=== PATIENT | female | born 1995 | race Caucasian/White ===

== ENCOUNTER 2018-02-04 13:50 | Emergency (ER) | END 2018-02-04 17:24 | disposition home or self-care (01) ==

== ENCOUNTER 2018-07-19 12:25 | Inpatient (IN) | payer OTHER ==
[~2018-07-19] VITALS: Ht 165.1 cm; Wt 110.6 kg
[~2018-07-19 12:25] MED LIST: CALC600T24 PO; FERR-31 PO; FOLI-49 PO; PREN-29 PO
[2018-07-19 12:42] VITALS: BP 122/68; PULSE 94; RESP 18
[2018-07-19 12:43] VITALS: Ht 165.1 cm; Wt 110.6 kg
--- NOTE | 2018-07-19 13:54 | TRIAGE ---
OB Triage Datetime Report Generated by CPN: 07/19/2018 13:54 Datetime: 07/19/2018 13:30 Stage of : OB Triage Maternal Assessment Level of Consciousness: Fully Conscious Labor Evaluation Frequency: 5uc/hr Monitor Mode: External Duration (sec)2399: 50-80 Quality: Mild Resting Tone Belcher: Relaxed Heart Rate FHR Baseline Rate: 135 Monitor Mode: External US Variability: Moderate 6-25 bpm Accelerations: 15X15 Decelerations: None Category: Category I Pain Assessment Pain Scale: 0 Pain Goal: 3 Vaginal Exam Membrane Status: Intact Vaginal Bleeding: None Datetime: 07/19/2018 12:39 Assessment Type: Triage Maternal Assessment Level of Consciousness: Fully Conscious DTR's/Clonus: DTRs 2+; No Clonus Headache: Denies Blurred Vision: No Respiratory Effort: Unlabored; Regular Rhythm; Equal Expansion Breath Sounds, Left: Clear and Equal Breath Sounds, Right: Clear and Equal Nausea/Vomiting: Denies RUQ Epigastric Pain: Denies Lower Extremities Edema: None Degree: None Upper Extremities Edema: None Degree: None Facial Edema: None Fall Risk Assessment History of Falling: (0) No Secondary Diagnosis: (0) No Ambulatory Aid: (0) Bedrest/Nurse Assist IV Therapy: (0) No Gait: (0) Normal/Bedrest/Immobile Mental Status: (0) Oriented to Own Ability Fall Score: 0 Fall Risk Score Definition: No Risk: No action required Datetime: 07/19/2018 12:37 Monitor Mode: External Monitor Mode: External US Datetime: 07/19/2018 12:32 Time of Arrival: 07/19/2018 12:19 Arrived By: Ambulatory; Wheelchair Arrived From: Home Chief Complaint: PT HERE C/O PAIN AND SPOTTING 2 DAYS AGO Movement: Present Contractions: Denies/Absent Rupture of Membranes: Denies Vaginal Bleeding: None Vaginal Discharge: Present Recent Sexual Intercouse: Denies Abdominal Trauma: Not Applicable Patient Complaints: Cramping Time Provider Notified: 07/19/2018 12:19 Provider Notified: MADHAV Initial Plan: KINGT/GABRIEL/BARBARAL
--- NOTE | 2018-07-19 13:54 | HP ---
Date/Time of Note Date/Time of Note DATE: 07/19/18 TIME: 13:52 OB - History Hx of Present Free Text/Dictation @30+WKS GA with PTL and spotting : 3 Para: 2 Care: None Ultrasounds: No ultrasounds Obstetrical Complications: None Medical Complications: None Past Family/Social History * Past Medical, Surgical, Family and Obstetric Histories reviewed from chart. OB Admission Exam Vital Signs Vital Signs Vital Signs Date Temp Pulse Resp B/P (MAP) Pulse Ox O2 O2 Flow FiO2 Time Delivery Rate 07/19/18 98.2 94 18 122/68 Room Air 12:42 (86) Physical Exam Abdomen: WNL Extremities: Normal Cervical Dilatation: None Station: Ballotable Membranes: Intact Heart Rate: 140's Accelerations: Accelerations Present Decelerations: No Decelerations Varibility: Moderate Contractions on Admission: None OB Assessment/Plan Reason for admission: observation Other Assessment: PMH Denies PSH Denies Allergies NKDA Plan: Expectant Management Other plan: Steroids Perinatology consult Continuous monitoring Urine culture ROBB Burgos M.D. Jul 19, 2018 13:54
[2018-07-19] MEDS ORDERED: CEFAZOLIN 2 GM/50 ML (PMX) 50 ML IVPB ONE ×2 (14:00→15:49)
[2018-07-19] MEDS ORDERED: ACETAMINOPHEN 325 MG TAB PO PRN (14:00)
[2018-07-19] MEDS: LACTATED RINGER'S 1,000 ML IV SCH ×2 (15:42→22:08)
[2018-07-19] MEDS: BETAMET NA PHOS/AC(6 MG/ML) 2 ML INJ SYG IM SCH (18:23)
[2018-07-19] MEDS: NITROFURANTOIN (SR) 100 MG CAP PO SCH (22:07)
[2018-07-20] MEDS: LACTATED RINGER'S 1,000 ML IV SCH ×2 (05:44→13:40)
[2018-07-20] MEDS: PRENATAL VITAMIN PO SCH (08:41)
[2018-07-20] MEDS: NITROFURANTOIN (SR) 100 MG CAP PO SCH ×2 (08:41→21:07)
[2018-07-20] MEDS: INSULIN ASPART [NOVOLOG] 3 ML PEN SC SCH ×2 (17:35→21:00)
[2018-07-20] MEDS: BETAMET NA PHOS/AC(6 MG/ML) 2 ML INJ SYG IM SCH (17:40)
[2018-07-20] MEDS: ACCU-CHEK XX SCH ×2 (17:41→20:53)
[2018-07-20] MEDS ORDERED: ACCU-CHEK XX SCH (20:05)
[2018-07-20] MEDS ORDERED: LACTATED RINGER'S 1,000 ML IV SCH (22:00)
[2018-07-20] MEDS ORDERED: BETAMET NA PHOS/AC(6 MG/ML) 2 ML INJ SYG IM SCH (22:00)
[2018-07-20] MEDS: CEFAZOLIN 1 GM/50 ML (PMX) 50 ML IVPB SCH (22:06)
--- NOTE | 2018-07-21 01:45 | PN ---
Date/Time of Note Date/Time of Note DATE: 07/21/18 TIME: 01:40 OB Subjective Subjective Subjective Entry note. Patient seen on 07/20/2018 patient seen and examined. She states good movement. She denies nausea, vomiting, shortness of breath, chest pain, abdominal pain, headache, visual changes, vaginal bleeding or LOF. OB Objective Objective Objective General: Patient appears well, alert and oriented, NAD, appropriate mood and affect ABD: gravid, soft, non-tender. Back: No CVA tenderness (B/L) LE: Mild edema. No clubbing, cyanosis, edema, thigh or calf tenderness bilaterally FHT: 135 bpm , moderate variability with acceleration, no deceleration-category I Contractions: None OB Assessment/Plan Other plan: 22 Year-old with SIUP at 30 weeks and 6 days with polyhydramnios, contractions and urinary tract infection. FHR: Reassuring. No sign of metabolic acidosis- Category I. She has received betamethasonex1, will receive second dose today. Due to polyhydramnios, consider her as gestational diabetes. FBS, 2 hours postprandial and insulin sliding scale. Regarding her urinary tract infection she is on Ancef, continue same dose. I did recommend increase fluid intake. JASPREET WARNER Jul 21, 2018 01:45
[2018-07-21] MEDS: CEFAZOLIN 1 GM/50 ML (PMX) 50 ML IVPB SCH ×2 (06:01→14:06)
[2018-07-21] MEDS: PRENATAL VITAMIN PO SCH (08:58)
--- NOTE | 2018-07-21 12:06 | PN ---
Date/Time of Note Date/Time of Note DATE: 07/21/18 TIME: 11:59 OB Subjective Subjective Subjective Patient overall reports significant improvement. Denies any flank pain or back pain. Denies any contractions, leaking of fluid vaginal bleeding decreased movement. Ambulating. Denies any pelvic pressure symptoms. Denies any fever or chills. OB Objective Objective Objective General appearance: Alert and oriented x4 does not appear to be in any acute distress. Abdomen: Soft, gravid, fundal height larger than date No CVA tenderness NST: Category 1 and no contraction noted on the monitor Blood sugar well controlled with insulin sliding scale Laboratory Tests Test 07/20/18 14:29 07/20/18 17:35 07/20/18 20:52 07/21/18 08:07 Hemoglobin A1c 5.6 Bedside Glucose 160 137 114 Test 07/21/18 10:36 Bedside Glucose 145 OB Assessment/Plan Other Assessment: Admitted due to pyelonephritis, status post IV antibiotics for 72 hours Symptoms significantly improved contractions likely secondary to pyelonephritis and polyhydramnios GDM, patient received a dose of the steroid, was on insulin sliding scale and blood sugar optimally controlled Status post nutrition consultation and dietary education Patient now stable to be discharged home Need to have a follow-up within 48 hours after discharge from the hospital with her primary OB clinic for management of GDM and polyhydramnios I discussed the patient that she needs to continue taking antibiotics to complete 14 days course of antibiotic and then be on prophylactic daily dose of Keflex throughout the and to 6 weeks I also discussed with patient to take adequate cranberry unsweetened fluids and adequate hydration Strict labor precautions and kick counts and strict follow-up with primary OB office discussed with the patient. All questions were answered to patient's best satisfaction and patient verbalized understanding. RAHEEL MIDDLETON MD Jul 21, 2018 12:06
--- NOTE | 2018-07-21 12:10 | PD.PPDC ---
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 Condition [id number] Patient Condition: Xhquh1c Good Diet [id number] Diet: Vtkbl4i Special Diet (GDM) Special Diet: Diabetic diet [facility] ADA diet Activity/Restrictions [id number] Activity: Rjwiu4p Normal Activity [id number] Restrictions: Pebrw9l No Exercising No Lifting Nothing in the Vagina No [place] No Tampons, douche Follow-up Follow-up with Physician: 2, Day/Days Provider Information: follow up in 2 days with OB office Referral Comment: Discussed regarding management of blood sugar with self checking BS at home goal of blood sugar fasting and post prandial discussed. 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
[2018-08-15] MEDS ORDERED: PREN1TAB13 PO (15:08)
== END 2018-07-21 15:57 | disposition home or self-care (01) | DRG 832 ==
LOC: OBT 12:25 → L-D 12:27 → OBT 13:50 → PP1 17:19
PROVIDERS: ADMIT Obstetrics & Gynecology; ATTEND Obstetrics & Gynecology
DX: O40.3XX0 Polyhydramnios, third trimester, not applicable or unspecified (principal); O23.43 Unspecified infection of urinary tract in pregnancy, third trimester; Z3A.30 30 weeks gestation of pregnancy
CPT/HCPCS: 76815; 76817; 76818; 80053; 80307; 81001; 82962; 83036; 85025; 85610; 85730; 86592; 86703; 86762; 86900; 86901; 87086; 87340; G0463; J0690; J0702; J1815; J7120

== ENCOUNTER 2018-09-10 09:14 | Inpatient (IN) | payer OTHER ==
[~2018-09-10] VITALS: Ht 165.1 cm; Wt 111.4 kg
[~2018-09-10 09:14] MED LIST changes: -CALC600T24 PO; -FERR-31 PO; -FOLI-49 PO; -PREN-29 PO; +PREN1TAB13 PO
[2018-09-10 09:20] VITALS: BP 117/76; PULSE 93; RESP 20; Ht 165.1 cm; Wt 111.4 kg
[2018-09-10] MEDS ORDERED: LIDOCAINE 1% (MPF) 30 ML INJ ONE (09:54)
[2018-09-10] MEDS ORDERED: CARBOPROST 250 MCG INJ IM PRN ×2 (10:00→13:30)
[2018-09-10] MEDS ORDERED: AMPICILLIN 2 GM/NS (PMX) 100 ML IV ONE (10:00)
[2018-09-10] MEDS ORDERED: LIDOCAINE 1% (MPF) 30 ML INJ INJ PRN (10:00)
[2018-09-10] MEDS ORDERED: MISOPROSTOL 200 MCG TAB PR PRN ×2 (10:00→13:30)
[2018-09-10] MEDS ORDERED: BUTORPHANOL 2 MG INJ IV PRN (10:00)
[2018-09-10] MEDS ORDERED: DEXTROSE 5%-LR 1,000 ML IV SCH (10:00)
[2018-09-10] MEDS ORDERED: METHYLERGONOVINE 0.2 MG INJ IM PRN ×2 (10:00→13:30)
[2018-09-10] MEDS ORDERED: OXYTOCIN 30 UNITS/LR 500 ML IV SCH ×2 (10:00)
[2018-09-10] MEDS ORDERED: OXYTOCIN 30 UNITS/LR 500 ML IV PRN ×2 (10:00→13:30)
--- NOTE | 2018-09-10 10:06 | TRIAGE ---
OB Triage Datetime Report Generated by CPN: 09/10/2018 10:06 Datetime: 09/10/2018 09:40 Vaginal Exam Dilatation (cms): 10.0 Effacement (%): 100 Station: -1 Exam By: evangelista/chan Membrane Status: Bulging Vaginal Bleeding: Normal Show Cervix, Consistency: Soft Cervix, Position: Midposition Presentation 'A': Unable to Assess Datetime: 09/10/2018 09:30 Assessment Type: Triage Maternal Assessment Level of Consciousness: Fully Conscious DTR's/Clonus: DTRs 2+; No Clonus Headache: Denies Blurred Vision: No Respiratory Effort: Unlabored; Regular Rhythm; Equal Expansion Nausea/Vomiting: Denies RUQ Epigastric Pain: Denies Facial Edema: None Fall Risk Assessment History of Falling: (0) No Secondary Diagnosis: (0) No Ambulatory Aid: (0) Bedrest/Nurse Assist IV Therapy: (0) No Gait: (0) Normal/Bedrest/Immobile Mental Status: (0) Oriented to Own Ability Fall Score: 0 Fall Risk Score Definition: No Risk: No action required Datetime: 09/10/2018 09:28 Time of Arrival: 09/10/2018 09:11 EGA: 38.1 Arrived By: Wheelchair Arrived From: Home Chief Complaint: UCS Movement: Present Contractions: Regular Contractions: 5 MIN Rupture of Membranes: Denies Vaginal Bleeding: None Vaginal Discharge: Denies Recent Sexual Intercouse: Denies Abdominal Trauma: Not Applicable Patient Complaints: Contractions Time Provider Notified: 09/10/2018 09:44 Provider Notified: DHAVAL Initial Plan: NST, SVE Datetime: 08/15/2018 15:14 EGA: 34.3 Chief Complaint: sent in with orders for bpp/nst and efw for s>d, a1dm Time Provider Notified: 08/15/2018 16:20 Datetime: 08/15/2018 15:00 Fall Score: 0 Fall Risk Score Definition: No Risk: No action required Datetime: 07/21/2018 07:21 Fall Score: 0 Fall Risk Score Definition: No Risk: No action required Datetime: 07/20/2018 19:22 Fall Score: 0 Fall Risk Score Definition: No Risk: No action required Datetime: 07/19/2018 19:27 Fall Score: 0 Fall Risk Score Definition: No Risk: No action required Datetime: 07/19/2018 16:12 Fall Score: 0 Fall Risk Score Definition: No Risk: No action required Datetime: 07/19/2018 15:22 EGA: 30.4 Datetime: 07/19/2018 12:39 Fall Score: 0 Fall Risk Score Definition: No Risk: No action required
[2018-09-10] MEDS: LACTATED RINGER'S 1,000 ML IV SCH ×2 (10:55→10:56)
[2018-09-10] MEDS ORDERED: LACTATED RINGER'S 1,000 ML IV* SCH (13:24)
--- NOTE | 2018-09-10 13:24 | HP ---
Date/Time of Note Date/Time of Note DATE: 09/10/18 TIME: 13:20 OB - History Hx of Present Free Text/Dictation Patient is a 23-year-old 3 para 2 at 38 weeks and 1 day of gestation with estimated date of delivery September 23, 2018 presents with bulging membranes and regular contractions and active labor She reports positive movement, no leaking fluid and no vaginal bleeding Patient is gestational diabetic diet controlled She has had no/very limited care GBS status is negative Estimated Due Date: Sep 23, 2018 : 3 Para: 2 Care: Limited Care Obstetrical Complications: Gestational Diabetes Medical Complications: None Past Family/Social History * Past Medical, Surgical, Family and Obstetric Histories reviewed from chart. OB Admission Exam Vital Signs Vital Signs Vital Signs Date Temp Pulse Resp B/P (MAP) Pulse Ox O2 O2 Flow FiO2 Time Delivery Rate 09/10/18 97.2 93 20 117/76 Room Air 09:20 (90) Physical Exam HEENT: WNL Heart: Rhythm Normal Lungs: Clear, Equal Abdomen: WNL Extremities: Normal Reflexes: Normal Cervical Dilatation: 10cm Effacement: 100% Station: -1 Membranes: Intact Heart Rate: 140's Accelerations: Accelerations Present Decelerations: No Decelerations Varibility: Moderate Contractions on Admission: < 5 Minutes Apart Intensity: Moderate Last 72 hourBlood Glucose Bedside Glucose - 72 Hours Test 09/10/18 11:09 Bedside Glucose 81 mg/dL (70-220) Last 72 hours Lab Results CBC & BMP 09/10/18 09:50 Liver Function Test 09/10/18 09:50 Alanine Aminotransferase (ALT/SGPT) < 6 L Albumin 3.4 Alkaline Phosphatase 165 H Aspartate Amino Transf (AST/SGOT) 16 Direct Bilirubin 0.00 Total Protein 6.4 OB Assessment/Plan Reason for admission: active labor Plan: Expectant Management Other plan: Admit to labor and delivery Anticipate normal delivery MINERVA PUENTES MD Sep 10, 2018 13:24
--- NOTE | 2018-09-10 13:29 | LDN ---
Date/Time of Note Date/Time of Note DATE: 09/10/18 TIME: 13:25 Delivery Summary Term gestation Placenta Delivered: Spontaneously Meconium: none Episiotomy: No Laceration repair: Superficial perineral and tania-clitorial laceration repaired with 2-0 chromic and 4-0 chromic Anesthesia type: Local Estimated blood loss: 100 Sponge & Needle done & correct: Yes All needle counts correct: Yes Any foreign bodies felt in the: No Infant Delivery Information Sex Sex: male Apgars 1 Minute: 9 5 Minute: 9 Suctioning Nose & mouth suctioned at tania: Yes Umbilical Cord Umbilical cord with: 3 Vessels Cord presentations: no nuchal cord Cord Blood was obtained: Yes Mother & Baby Disposition Disposition Copious amount of amniotic fluid Baby's weight 6 pounds/ 2710 gr Mom & Baby to Maternity; Good: Yes Baby to NICU: No MINERVA PUENTES MD Sep 10, 2018 13:29
[2018-09-10] MEDS ORDERED: MAGNESIUM HYDROXIDE 30ML CUP PO PRN (13:30)
[2018-09-10] MEDS ORDERED: ACETAMINOPHEN 325 MG TAB PO PRN ×2 (13:30)
[2018-09-10] MEDS ORDERED: SENNA/DOCUSATE NA (8.6MG/50MG) TAB PO PRN (13:30)
[2018-09-10] MEDS ORDERED: WITCH HAZEL/GLYCERIN PAD PR PRN (13:30)
[2018-09-10] MEDS ORDERED: LANOLIN HPA 1 PKT TOP PRN (13:30)
[2018-09-10] MEDS ORDERED: ONDANSETRON 4 MG INJ IV PRN (13:30)
[2018-09-10] MEDS ORDERED: DIBUCAINE 1% 30 GM OINT TOP PRN (13:30)
[2018-09-10] MEDS ORDERED: BENZOCAINE 20% 56 ML SPRAY TOP PRN (13:30)
[2018-09-10] MEDS: OXYTOCIN 30 UNITS/LR 500 ML IV SCH ×2 (13:58→16:00)
[2018-09-10] MEDS ORDERED: AMPICILLIN 1 GM/NS (PMX) 50 ML IV SCH (14:00)
[2018-09-10] MEDS: IBUPROFEN 600 MG TAB PO PRN (15:57)
[2018-09-10 19:20] VITALS: BP 108/53; PULSE 89; RESP 19
[2018-09-11 00:27] VITALS: BP 103/54; PULSE 89; RESP 18
[2018-09-11 04:31] VITALS: BP 113/55; PULSE 91; RESP 18
[2018-09-11] MEDS: IBUPROFEN 600 MG TAB PO PRN ×3 (05:34→18:07)
[2018-09-11 08:00] VITALS: BP 112/59; PULSE 80; RESP 18
--- NOTE | 2018-09-11 11:43 | QN ---
Documentation Comment PPD#1 is stable No VB +BM +voids VS stable Gen NA Abd soft NT ND Genitalia No blood at perineum __>discharge plan tomorrow --->Ambulation ROBB COREY M.D. Sep 11, 2018 11:43
[2018-09-11 15:56] VITALS: BP 106/58; PULSE 84; RESP 18
[2018-09-11 20:00] VITALS: BP 102/52; PULSE 89; RESP 18
[2018-09-12] MEDS: IBUPROFEN 600 MG TAB PO PRN ×2 (00:19→11:54)
[2018-09-12 04:00] VITALS: BP 119/75; PULSE 78; RESP 17
[2018-09-12 08:00] VITALS: BP 101/59; PULSE 86; RESP 18
--- NOTE | 2018-09-12 12:19 | QN ---
Documentation Comment PPD#2 is stable No VB +BM +voids VS stable Gen NA Abd soft NT ND Genitalia No blood at perineum __>discharge plan --->Ambulation ROBB COREY M.D. Sep 12, 2018 12:19
--- NOTE | 2018-09-12 12:22 | DS ---
Date/Time of Note Date/Time of Note DATE: 09/12/18 TIME: 12:21 Discharge Summary Admission/Discharge Info Admit Date/Time Sep 10, 2018 at 09:40 Discharge Date/Time 09/12/2018 Discharge Diagnosis Patient Condition: Good Hospital Course uneventful Home Meds Reported Medications Pnv95/Ferrous Fumarate/FA ( Vitamins Tablet) 1 Each Tablet, 1 EACH PO DAILY, TAB 08/15/18 Primary Care Provider Not On Staff Doctor ROBB COREY M.D. Sep 12, 2018 12:22
== END 2018-09-12 14:15 | disposition home or self-care (01) | DRG 806 ==
LOC: L-D 09:14 → OBT 09:14 → L-D 09:40 → PP1 15:06
PROVIDERS: ADMIT Obstetrics & Gynecology Gynecology; ATTEND Obstetrics & Gynecology Gynecology
PROC: 10E0XZZ Delivery of Products of Conception, External Approach (ICD-10-PCS; principal; 2018-09-10)
PROC: 0HQ9XZZ Repair Perineum Skin, External Approach (ICD-10-PCS; 2018-09-10)
DX: O24.420 Gestational diabetes mellitus in childbirth, diet controlled (principal); O99.12 Other diseases of the blood and blood-forming organs and certain disorders involving the immune mechanism complicating childbirth; Z37.0 Single live birth; D69.6 Thrombocytopenia, unspecified; O70.0 First degree perineal laceration during delivery; Z3A.38 38 weeks gestation of pregnancy
CPT/HCPCS: 76815; 80053; 80307; 82962; 85025; 85610; 85730; 86592; 86762; 86850; 86900; 86901; 87340; 87536; G0463; J0290; J2590; J7120; J7121